=== PATIENT | female | born 1940 | race Caucasian/White ===

== ENCOUNTER → 2017-11-15 | Outpatient (CLI) | payer MEDICARE | LOC: CVU 15:50 | PROVIDERS: ATTEND Family Medicine | DX: I08.0 Rheumatic disorders of both mitral and aortic valves (principal); I10 Essential (primary) hypertension; E78.5 Hyperlipidemia, unspecified | CPT/HCPCS: 93306 ==

== ENCOUNTER 2018-01-24 09:52 | Observation (INO) | payer MEDICARE ==
[~2018-01-24] VITALS: Ht 165.1 cm; Wt 92.4 kg
[2018-01-24] MEDS ORDERED: SIMV20TA3 PO (11:21)
[2018-01-24] MEDS ORDERED: DORZ10DR7 EACHEYE (11:21)
[2018-01-24] MEDS ORDERED: HYDR-3245 PO (11:21)
[2018-01-24] MEDS ORDERED: INSU100V3 SC (11:21)
[2018-01-24] MEDS ORDERED: LISI40TA PO (11:21)
[2018-01-24] MEDS ORDERED: AMLO10TA4 PO (11:21)
[2018-01-24] MEDS ORDERED: LATA7.5D EACHEYE (11:21)
[2018-01-24] MEDS ORDERED: INSU100I13 SQ (11:21)
[2018-01-24] MEDS ORDERED: METF500T5 PO (11:21)
[2018-01-24 11:26] LABS: BASOPHILS # (AUTO) 0.13 x10^3/uL (0-0.1); BASOPHILS % (AUTO) 2 % (0-1); EOSINOPHILS # (AUTO) 0.49 x10^3/uL (0-0.4); EOSINOPHILS % (AUTO) 8 % (1-7); LYMPHOCYTES # (AUTO) 1.92 x10^3/uL (1-3.4); LYMPHOCYTES % (AUTO) 33 % (22-44); MD NO; MEAN CORPUSCULAR HEMOGLOBIN 32.6 pg (27.0-34.8); MEAN CORPUSCULAR HGB CONC 34.1 g/dL (32.4-35.8); MEAN CORPUSCULAR VOLUME 95.4 fL (80-100); MEAN PLATELET VOLUME 9.3 fL (7.4-10.4); MONOCYTES # (AUTO) 0.65 x10^3/uL (0.2-0.8); MONOCYTES % (AUTO) 11 % (2-9); NEUTROPHILS # (AUTO) 2.72 x10^3/uL (1.8-6.8); NEUTROPHILS % (AUTO) 46 % (42-75); PLATELET COUNT 237 x10^3/uL (130-400); RED CELL DISTRIBUTION WIDTH 13.7 % (9.6-15.2)
[2018-01-24 11:34] LABS: ANION GAP 7 mmol/L (5-15); CALCIUM 9.3 mg/dL (8.5-10.1); CHLORIDE 107 mmol/L (98-107); CREATININE 0.79 mg/dL (0.55-1.02)
[2018-01-24] MEDS ORDERED: MIDAZOLAM 1 MG/ML, 5ML ONE (12:20)
[2018-01-24] MEDS ORDERED: FENTANYL PF 100 MCG/2ML ONE (12:20)
[2018-01-24] MEDS ORDERED: DIPHENHYDRAMINE 50 MG/ML, 1ML ONE (12:21)
[2018-01-24] MEDS ORDERED: BIVALIRUDIN 250 MG ONE (13:13)
[2018-01-24] MEDS ORDERED: TICAGRELOR 90 MG TABLET ONE (13:13)
[2018-01-24] MEDS ORDERED: BIVALIRUDIN 250 MG in DEXTROSE 5% 50 ML IV SCH (13:35)
[2018-01-24] MEDS: SODIUM CHLORIDE 0.9% 1,000 ML IV SCH ×2 (13:35→21:41)
[2018-01-24] MEDS ORDERED: ASPIRIN 325 MG TABLET EC ONE (13:40)
[2018-01-24] MEDS ORDERED: HYDROcodone/APAP 10/325 MG TABLET PO PRN (14:00)
[2018-01-24 15:55] VITALS: BP 147/80
[2018-01-24 18:50] VITALS: BP 160/85
[2018-01-24] MEDS ORDERED: LATANOPROST OPHTH 0.005%, 2.5ML EACHEYE SCH (21:00)
[2018-01-24] MEDS ORDERED: TIMOLOL OPHTH 0.5%, 5ML EACHEYE SCH (21:00)
[2018-01-24] MEDS ORDERED: SIMVASTATIN 20 MG TABLET PO SCH (21:00)
[2018-01-24] MEDS ORDERED: INSULIN GLARGINE 100 UNITS/ML, PEN SQ-INSULIN SCH (21:00)
[2018-01-24] MEDS ORDERED: DORZOLAMIDE OPHTH 2%, 10ML EACHEYE SCH (21:00)
[2018-01-24] MEDS: TICAGRELOR 90 MG TABLET PO SCH (21:02)
[2018-01-25 01:00] VITALS: BP 144/80
[2018-01-25 04:58] LABS: ALBUMIN 3.4 g/dL (3.4-5.0); ANION GAP 7 mmol/L (5-15); CALCIUM 9.1 mg/dL (8.5-10.1); CHLORIDE 107 mmol/L (98-107); CREATININE 0.91 mg/dL (0.55-1.02)
[2018-01-25] MEDS: SODIUM CHLORIDE 0.9% 1,000 ML IV SCH (05:07)
[2018-01-25] MEDS ORDERED: ASPIRIN 81 MG TABLET EC PO SCH (06:00)
[2018-01-25 07:51] VITALS: BP 128/87
[2018-01-25] MEDS ORDERED: LISINOPRIL 20 MG TABLET PO SCH (09:00)
[2018-01-25] MEDS ORDERED: AMLODIPINE 5 MG TABLET PO SCH (09:00)
[2018-01-25] MEDS: TICAGRELOR 90 MG TABLET PO SCH (09:19)
[2018-01-25] MEDS ORDERED: TICA90TA PO (10:10)
[2018-01-25] MEDS ORDERED: ASPI-621 PO (10:10)
== END 2018-01-25 12:25 | disposition home or self-care (01) ==
LOC: CACL 09:52 → 5SO 15:25 → CACL 20:45 → DCLOUNGE 01-25 11:48
PROVIDERS: ADMIT Internal Medicine Cardiovascular Disease; ATTEND Internal Medicine Cardiovascular Disease
DX: I25.10 Atherosclerotic heart disease of native coronary artery without angina pectoris (principal); I35.0 Nonrheumatic aortic (valve) stenosis; I10 Essential (primary) hypertension; E11.9 Type 2 diabetes mellitus without complications; M17.11 Unilateral primary osteoarthritis, right knee; E78.2 Mixed hyperlipidemia
CPT/HCPCS: 36415; 80048; 82040; 82962; 85014; 85018; 85025; 93005; 93454; 93567; 96372; 99156; 99157; C1725; C1760; C1769; C1874; C1887; C1894; C9600; G0378; J0583; J1200; J1815; J2250; J3010; Q9967

== ENCOUNTER → 2018-03-04 | Outpatient (CLI) | payer MEDICARE ==
[~2018-03-04] MED LIST: AMLO10TA4 PO; ASPI-621 PO; DORZ10DR7 EACHEYE; HYDR-3245 PO; INSU100I13 SQ; INSU100V3 SC; LATA7.5D EACHEYE; LISI40TA PO; METF500T17 PO; SIMV20TA3 PO; TICA90TA PO
== END | disposition home or self-care (01) ==
LOC: CVU 08:59
PROVIDERS: ATTEND Internal Medicine Cardiovascular Disease
DX: I65.23 Occlusion and stenosis of bilateral carotid arteries (principal); J45.909 Unspecified asthma, uncomplicated; I35.0 Nonrheumatic aortic (valve) stenosis; E11.9 Type 2 diabetes mellitus without complications
CPT/HCPCS: 93880; 94060; 94726; 94729

== ENCOUNTER → 2018-03-07 | Outpatient (CLI) | payer MEDICARE ==
[~2018-03-07] MED LIST changes: +OMNIPAQUE 350 MG/ML, 100ML BOTTLE ONE
[2018-03-07 13:19] LABS: ANION GAP 9 mmol/L (5-15); CHLORIDE 106 mmol/L (98-107); CREATININE 0.98 mg/dL (0.55-1.02)
== END | disposition home or self-care (01) ==
LOC: RAD 12:51
PROVIDERS: ATTEND Internal Medicine Cardiovascular Disease
DX: I70.1 Atherosclerosis of renal artery (principal); I25.10 Atherosclerotic heart disease of native coronary artery without angina pectoris; N95.9 Unspecified menopausal and perimenopausal disorder; N28.1 Cyst of kidney, acquired; I11.0 Hypertensive heart disease with heart failure; I50.23 Acute on chronic systolic (congestive) heart failure; E11.9 Type 2 diabetes mellitus without complications; E78.2 Mixed hyperlipidemia; Z98.61 Coronary angioplasty status
CPT/HCPCS: 36415; 71275; 74174; 80048; Q9967

== ENCOUNTER 2018-03-19 07:55 | Inpatient (IN) | payer MEDICARE ==
[~2018-03-19] VITALS: Ht 165.1 cm; Wt 95.4 kg
[~2018-03-19 07:55] MED LIST changes: -OMNIPAQUE 350 MG/ML, 100ML BOTTLE ONE
[2018-03-19] MEDS ORDERED: SODIUM CHLORIDE 0.9% 1,000 ML IV ONE (08:08)
[2018-03-19] MEDS ORDERED: CHLORHEXIDINE 15 ML UDC MM PRN (08:30)
[2018-03-19] MEDS ORDERED: ONDANSETRON 2MG/ML, 2ML IVPush PRN (08:30)
[2018-03-19] MEDS ORDERED: MULT-257 PO (08:51)
[2018-03-19] MEDS ORDERED: IBUP-1223 PO (08:51)
[2018-03-19] MEDS ORDERED: UBID100C41 PO (08:51)
[2018-03-19] MEDS ORDERED: CLOP75TA52 PO (08:51)
[2018-03-19 08:59] VITALS: BP 144/70
[2018-03-19] MEDS ORDERED: FENTANYL PF 250 MCG/5ML ONE (09:16)
[2018-03-19] MEDS ORDERED: CEFAZOLIN 1,000 MG ONE (09:17)
[2018-03-19] MEDS ORDERED: PROTAMINE SULFATE 10 MG/ML, 5ML ONE (09:17)
[2018-03-19] MEDS ORDERED: ROCURONIUM 10MG/ML,5ML ONE (09:19)
[2018-03-19] MEDS ORDERED: HEPARIN 1,000 UNITS/ML, 30ML ONE (09:19)
[2018-03-19] MEDS ORDERED: PHENYLEPHRINE 10 MG/ML ONE (09:19)
[2018-03-19] MEDS ORDERED: PROPOFOL 10 MG/ML, 20ML ONE (09:19)
[2018-03-19] MEDS ORDERED: EPHEDRINE 50 MG/ML, 1ML ONE (10:01)
[2018-03-19 10:10] LABS: BASOPHILS # (AUTO) 0.12 x10^3/uL (0-0.1); BASOPHILS % (AUTO) 1 % (0-1); EOSINOPHILS # (AUTO) 0.36 x10^3/uL (0-0.4); EOSINOPHILS % (AUTO) 4 % (1-7); LYMPHOCYTES # (AUTO) 1.96 x10^3/uL (1-3.4); LYMPHOCYTES % (AUTO) 21 % (22-44); MD NO; MEAN CORPUSCULAR HEMOGLOBIN 33.1 pg (27.0-34.8); MEAN CORPUSCULAR HGB CONC 34.6 g/dL (32.4-35.8); MEAN CORPUSCULAR VOLUME 95.6 fL (80-100); MEAN PLATELET VOLUME 8.8 fL (7.4-10.4); MONOCYTES # (AUTO) 0.64 x10^3/uL (0.2-0.8); MONOCYTES % (AUTO) 7 % (2-9); NEUTROPHILS # (AUTO) 6.32 x10^3/uL (1.8-6.8); NEUTROPHILS % (AUTO) 67 % (42-75); PLATELET COUNT 250 x10^3/uL (130-400); RED BLOOD COUNT 4.02 x10^6/uL (3.82-5.3); RED CELL DISTRIBUTION WIDTH 13.7 % (9.6-15.2)
[2018-03-19 10:18] LABS: ALANINE AMINOTRANSFERASE 28 U/L (12-78); ALBUMIN 3.4 g/dL (3.4-5.0); ANION GAP 10 mmol/L (5-15); CALCIUM 8.4 mg/dL (8.5-10.1); CHLORIDE 111 mmol/L (98-107); CREATININE 0.77 mg/dL (0.55-1.02)
[2018-03-19 10:20] LABS: ALKALINE PHOSPHATASE 56 U/L (45-117); BILIRUBIN,TOTAL 0.4 mg/dL (0.2-1.0); TOTAL PROTEIN 6.5 g/dL (6.4-8.2)
[2018-03-19] MEDS ORDERED: LABETALOL 20 MG/4 ML IVPush PRN (11:30)
[2018-03-19] MEDS ORDERED: LABETALOL 5MG/ML, 20ML ONE (11:37)
[2018-03-19] MEDS: hydrALAzine 20 MG/ML, 1ML IVPush PRN ×2 (12:31→13:18)
[2018-03-19] MEDS: ASPIRIN 81 MG TABLET EC PO SCH (13:18)
[2018-03-19] MEDS ORDERED: ACETAMINOPHEN 325 MG TABLET PO PRN (20:30)
[2018-03-19] MEDS ORDERED: CLOPIDOGREL 75 MG TABLET PO ONE (21:00)
[2018-03-19 23:00] VITALS: BP 133/71
[2018-03-20] MEDS ORDERED: LABETALOL 5MG/ML, 20ML IVPush PRN (00:43)
[2018-03-20 01:11] VITALS: BP 139/59
[2018-03-20 01:20] VITALS: BP 148/90
[2018-03-20 01:30] VITALS: BP 124/67
[2018-03-20 05:42] LABS: BASOPHILS # (AUTO) 0.04 x10^3/uL (0-0.1); BASOPHILS % (AUTO) 0 % (0-1); EOSINOPHILS # (AUTO) 0.06 x10^3/uL (0-0.4); EOSINOPHILS % (AUTO) 1 % (1-7); LYMPHOCYTES # (AUTO) 1.52 x10^3/uL (1-3.4); LYMPHOCYTES % (AUTO) 13 % (22-44); MD NO; MEAN CORPUSCULAR HGB CONC 33.7 g/dL (32.4-35.8); MEAN CORPUSCULAR VOLUME 97.9 fL (80-100); MEAN PLATELET VOLUME 9.1 fL (7.4-10.4); MONOCYTES # (AUTO) 1.28 x10^3/uL (0.2-0.8); MONOCYTES % (AUTO) 11 % (2-9); NEUTROPHILS # (AUTO) 8.64 x10^3/uL (1.8-6.8); NEUTROPHILS % (AUTO) 75 % (42-75); PLATELET COUNT 204 x10^3/uL (130-400); RED BLOOD COUNT 3.87 x10^6/uL (3.82-5.3); RED CELL DISTRIBUTION WIDTH 14.3 % (9.6-15.2)
[2018-03-20 05:53] LABS: CHLORIDE 107 mmol/L (98-107)
[2018-03-20 05:58] LABS: ANION GAP 9 mmol/L (5-15); CALCIUM 8.7 mg/dL (8.5-10.1); CREATININE 0.96 mg/dL (0.55-1.02)
[2018-03-20 06:49] VITALS: BP 124/63
[2018-03-20] MEDS ORDERED: CLOPIDOGREL 75 MG TABLET PO SCH (09:00)
[2018-03-20] MEDS ORDERED: DEXAMETHASONE 4 MG/ML, 1ML ONE (09:24)
[2018-03-20] MEDS ORDERED: SUCCINYLCHOLINE 20 MG/ML, 10ML ONE (09:24)
[2018-03-20] MEDS ORDERED: ONDANSETRON 2MG/ML, 2ML ONE (09:24)
[2018-03-20] MEDS: ASPIRIN 81 MG TABLET EC PO SCH (09:40)
[2018-03-20 12:20] VITALS: BP 139/79
== END 2018-03-20 16:17 | disposition home or self-care (01) | DRG 266 ==
LOC: ORIP 07:55 → CCU 09:21 → 5SO 22:59
PROVIDERS: ADMIT Internal Medicine Cardiovascular Disease; ATTEND Internal Medicine Cardiovascular Disease
PROC: 05HY33Z Insertion of Infusion Device into Upper Vein, Percutaneous Approach (ICD-10-PCS; 2018-03-19)
PROC: B246ZZ4 Ultrasonography of Right and Left Heart, Transesophageal (ICD-10-PCS; 2018-03-19)
PROC: 02RF38Z Replacement of Aortic Valve with Zooplastic Tissue, Percutaneous Approach (ICD-10-PCS; principal; 2018-03-19 10:00)
DX: I35.0 Nonrheumatic aortic (valve) stenosis (principal); Z00.6 Encounter for examination for normal comparison and control in clinical research program; I50.23 Acute on chronic systolic (congestive) heart failure; E11.9 Type 2 diabetes mellitus without complications; Z96.643 Presence of artificial hip joint, bilateral; Z96.651 Presence of right artificial knee joint; I11.0 Hypertensive heart disease with heart failure; E78.5 Hyperlipidemia, unspecified; I25.10 Atherosclerotic heart disease of native coronary artery without angina pectoris; M19.90 Unspecified osteoarthritis, unspecified site; Z79.84 Long term (current) use of oral hypoglycemic drugs; Z95.5 Presence of coronary angioplasty implant and graft
CPT/HCPCS: 33361; 36415; 80048; 80053; 82962; 85025; 85347; 86850; 86900; 86923; 87081; 93005; 93308; 93312; 93321; 93325; 93355; C1760; C1769; C1894; G0378; J0690; J1100; J1644; J2405; J2704; J2720; J3010; J0330; J0360; J2370; J3490; Q9967

== ENCOUNTER → 2018-04-23 | Outpatient (CLI) | payer MEDICARE ==
[~2018-04-23] MED LIST changes: +CLOP75TA52 PO; +IBUP-1223 PO; +MULT-257 PO; +UBID100C41 PO
== END | disposition home or self-care (01) ==
LOC: CVU 06:47
PROVIDERS: ATTEND Internal Medicine Cardiovascular Disease
DX: I08.1 Rheumatic disorders of both mitral and tricuspid valves (principal); I10 Essential (primary) hypertension; E78.5 Hyperlipidemia, unspecified; E11.9 Type 2 diabetes mellitus without complications
CPT/HCPCS: 0399T; 93306

== ENCOUNTER → 2018-05-29 | Outpatient (CLI) | payer MEDICARE ==
[~2018-05-29] MED LIST changes: -ASPI-621 PO; +ASPI81TA45 PO
== END | disposition home or self-care (01) ==
LOC: CVU 09:09
PROVIDERS: ATTEND Internal Medicine Cardiovascular Disease
DX: I35.0 Nonrheumatic aortic (valve) stenosis (principal); I34.8 Other nonrheumatic mitral valve disorders; I11.9 Hypertensive heart disease without heart failure; E78.5 Hyperlipidemia, unspecified; E11.9 Type 2 diabetes mellitus without complications
CPT/HCPCS: 93306

== ENCOUNTER 2018-10-28 10:35 | Day surgery (SDC) | payer MEDICARE ==
[2018-10-25 13:56] LABS: BASOPHILS % (AUTO) 1 % (0-1); EOSINOPHILS # (AUTO) 0.33 x10^3/uL (0-0.4); EOSINOPHILS % (AUTO) 3 % (1-7); LYMPHOCYTES # (AUTO) 2.48 x10^3/uL (1-3.4); LYMPHOCYTES % (AUTO) 22 % (22-44); MD NO; MEAN CORPUSCULAR HEMOGLOBIN 30.4 pg (27.0-34.8); MEAN CORPUSCULAR HGB CONC 31.9 g/dL (32.4-35.8); MEAN CORPUSCULAR VOLUME 95.6 fL (80-100); MEAN PLATELET VOLUME 8.4 fL (7.4-10.4); MONOCYTES # (AUTO) 1.18 x10^3/uL (0.2-0.8); MONOCYTES % (AUTO) 10 % (2-9); NEUTROPHILS # (AUTO) 7.36 x10^3/uL (1.8-6.8); NEUTROPHILS % (AUTO) 64 % (42-75); PLATELET COUNT 301 x10^3/uL (130-400); RED BLOOD COUNT 4.31 x10^6/uL (3.82-5.3); RED CELL DISTRIBUTION WIDTH 12.7 % (9.6-15.2)
[2018-10-25 14:08] LABS: ALANINE AMINOTRANSFERASE 19 U/L (12-78); ALBUMIN 3.5 g/dL (3.4-5.0); ANION GAP 8 mmol/L (5-15); CALCIUM 9.7 mg/dL (8.5-10.1); CHLORIDE 96 mmol/L (98-107); CREATININE 1.08 mg/dL (0.55-1.02); INTERNATIONAL NORMALIZED RATIO 1.01 (0.93-1.1); PROTHROMBIN TIME 10.6 Seconds (9.6-11.5)
[2018-10-25 14:10] LABS: ALKALINE PHOSPHATASE 79 U/L (45-117); BILIRUBIN,TOTAL 0.3 mg/dL (0.2-1.0); TOTAL PROTEIN 7.2 g/dL (6.4-8.2)
[~2018-10-28] VITALS: Ht 165.1 cm; Wt 90.6 kg
[~2018-10-28 10:35] MED LIST changes: +ASPI-496 PO; +HYDROCHLOROTH12.5 MG PO; +LORA-953 PO; +PRAS10TA4 PO
[2018-10-28] MEDS ORDERED: LACTATED RINGERS 1,000 ML IV SCH (11:08)
[2018-10-28] MEDS ORDERED: ACETAMINOPHEN 500 MG TABLET PO ONE (11:30)
[2018-10-28] MEDS ORDERED: ONDANSETRON ODT 8 MG PO ONE (11:30)
[2018-10-28 11:55] VITALS: BP 131/79
[2018-10-28] MEDS ORDERED: INSU100C SQ-INSULIN (12:06)
[2018-10-28] MEDS ORDERED: HYDROcodone/APAP 10/325 MG TABLET PO ONE (14:00)
[2018-10-28] MEDS ORDERED: ONDANSETRON ODT 8 MG ONE (16:04)
[2018-10-28] MEDS ORDERED: ACETAMINOPHEN 500 MG TABLET ONE (16:05)
[2018-10-28] MEDS ORDERED: MIDAZOLAM 1 MG/ML, 2ML ONE (16:51)
[2018-10-28] MEDS ORDERED: FENTANYL PF 100 MCG/2ML ONE (16:51)
[2018-10-28] MEDS ORDERED: PROPOFOL 10 MG/ML, 20ML ONE (16:52)
[2018-10-28] MEDS ORDERED: SUCCINYLCHOLINE 20 MG/ML, 10ML ONE (17:25)
[2018-10-28] MEDS ORDERED: PHENYLEPHRINE 10 MG/ML ONE (17:25)
[2018-10-28] MEDS ORDERED: OXYcodone 5 MG/5 ML ORAL.SOL UDC PO PRN (18:30)
[2018-10-28] MEDS ORDERED: MIDAZOLAM 1 MG/ML, 2ML IV PRN (18:30)
[2018-10-28] MEDS ORDERED: FENTANYL PF 100 MCG/2ML IV PRN (18:30)
[2018-10-28] MEDS ORDERED: HYDROmorphone 2 MG/ML, 1ML IVPush PRN (18:30)
[2018-10-28] MEDS ORDERED: OXYcodone 5 MG/5 ML ORAL.SOL UDC ONE (18:31)
== END 2018-10-28 21:50 | disposition home or self-care (01) ==
LOC: OUT 10:35 → 4NOR 19:31 → OUT 21:50
PROVIDERS: ATTEND Specialist
DX: C53.0 Malignant neoplasm of endocervix (principal); N95.0 Postmenopausal bleeding; N83.209 Unspecified ovarian cyst, unspecified side; E78.00 Pure hypercholesterolemia, unspecified; I10 Essential (primary) hypertension; E11.9 Type 2 diabetes mellitus without complications; Z79.899 Other long term (current) drug therapy; Z96.642 Presence of left artificial hip joint; Z79.84 Long term (current) use of oral hypoglycemic drugs
CPT/HCPCS: 36415; 58120; 80053; 82962; 85025; 85610; 85730; 88305; 88341; 88342; 88360; 93005; J0330; J2250; J2370; J2704; J3010; J7120; G0378

== ENCOUNTER 2018-11-13 09:52 | Inpatient (IN) | payer MEDICARE ==
[~2018-11-13] VITALS: Ht 165.1 cm; Wt 89.0 kg
[~2018-11-13 09:52] MED LIST changes: +INSU100C SQ-INSULIN
--- NOTE | 2018-11-13 10:01 | NUR ---
BIB [facility] FROM HOME WITH C/O INCREASED VAGINAL BLEEDING SINCE 10/28 WHEN SHE HAD DNC PREFORMED. PT WITH CHRONIC HX OF VAGINAL BLEEDING BUT STATES WORSE SINCE PROCEDURE. PT STATES GENERALIZED WEAKNESS. UNABLE TO DO MOST OF WHAT SHE NORMALLY DOES. PT DENIES PAIN AT THIS TIME. PT PALE, WARM, AND DRY. DENIES EVERY REQURING A BLOOD TRANSFUSION. IV STARTED BY [place] AND GIVEN 250ML OF NS AFTER BEING HYPOTENSIVE. VSS AT THIS TIME. WILL CONTINUE TO MONITOR.
[2018-11-13 10:35] LABS: INTERNATIONAL NORMALIZED RATIO 1.08 (0.93-1.1); PROTHROMBIN TIME 11.3 Seconds (9.6-11.5)
[2018-11-13 10:37] LABS: ALANINE AMINOTRANSFERASE 13 U/L (12-78); ANION GAP 12 mmol/L (5-15); CALCIUM 8.8 mg/dL (8.5-10.1); CHLORIDE 89 mmol/L (98-107); CREATININE 1.85 mg/dL (0.55-1.02)
[2018-11-13 10:39] LABS: ALKALINE PHOSPHATASE 65 U/L (45-117); BILIRUBIN,TOTAL 0.4 mg/dL (0.2-1.0); TOTAL PROTEIN 5.9 g/dL (6.4-8.2)
[2018-11-13 10:56] LABS: MEAN CORPUSCULAR HEMOGLOBIN 31.2 pg (27.0-34.8); MEAN CORPUSCULAR HGB CONC 32.6 g/dL (32.4-35.8); MEAN CORPUSCULAR VOLUME 95.9 fL (80-100); MEAN PLATELET VOLUME 8.5 fL (7.4-10.4); PLATELET COUNT 331 x10^3/uL (130-400); RED BLOOD COUNT 2.26 x10^6/uL (3.82-5.3); RED CELL DISTRIBUTION WIDTH 12.8 % (9.6-15.2)
[2018-11-13 10:58] LABS: BASOPHILS # (AUTO) 0.03 x10^3/uL (0-0.1); BASOPHILS % (AUTO) 0 % (0-1); EOSINOPHILS # (AUTO) 0.01 x10^3/uL (0-0.4); EOSINOPHILS % (AUTO) 0 % (1-7); LYMPHOCYTES # (AUTO) 1.49 x10^3/uL (1-3.4); LYMPHOCYTES % (AUTO) 9 % (22-44); MD SCAN; MONOCYTES # (AUTO) 1.15 x10^3/uL (0.2-0.8); MONOCYTES % (AUTO) 7 % (2-9); NEUTROPHILS # (AUTO) 13.97 x10^3/uL (1.8-6.8); NEUTROPHILS % (AUTO) 84 % (42-75)
--- NOTE | 2018-11-13 11:15 | NUR ---
ERMD AT BEDSIDE TO UPDATE POC. PT TO BE ADMITTED. TRANSFUSION TO OCCUR.
--- NOTE | 2018-11-13 11:54 | NUR ---
CONSENT SIGNED. REPORT TO ABHIJIT. BLOOD TO BE STARTED BEFORE TRANSPORT.
[2018-11-13 12:23] VITALS: BP 119/62
--- NOTE | 2018-11-13 12:25 | NUR ---
BLOOD RECEIVED FROM BLOOD BLANK. 2 PERSON VERIFCATION COMPLETED. BLOOD TRANSFUSION STARTED.
[2018-11-13] MEDS ORDERED: DOCUSATE 100 MG CAPSULE PO PRN (12:30)
[2018-11-13] MEDS ORDERED: ACETAMINOPHEN 325 MG TABLET PO PRN (12:30)
[2018-11-13] MEDS ORDERED: ENALAPRILAT 1.25 MG/ML, 2ML IVPush PRN (12:30)
[2018-11-13] MEDS ORDERED: POLYETHYLENE GLYCOL 17 GM PACKET PO PRN (12:30)
[2018-11-13 12:38] VITALS: BP 105/69
[2018-11-13 14:14] VITALS: BP 105/69
[2018-11-13] MEDS ORDERED: DEXTROSE 50%, 50ML SYRINGE IVPush PRN (15:30)
[2018-11-13] MEDS ORDERED: GLUCAGON 1 MG IM PRN (15:30)
[2018-11-13] MEDS ORDERED: DEXTROSE 4 GM TAB.CHEW PO PRN (15:30)
[2018-11-13] MEDS: INSULIN LISPRO 100 UNITS/ML, PEN SQ-INSULIN SCH ×2 (16:00→19:52)
[2018-11-13 16:07] VITALS: BP 105/69
[2018-11-13] MEDS: SODIUM CHLORIDE 0.9% 1,000 ML IV SCH ×2 (16:18→23:45)
[2018-11-13] MEDS: HYDROcodone/APAP 10/325 MG TABLET PO PRN (16:53)
[2018-11-13 19:27] VITALS: BP 108/69
[2018-11-13] MEDS ORDERED: IBUPROFEN 800 MG TABLET PO SCH (21:00)
[2018-11-13] MEDS: Dorzolamide Hcl/Timolol Maleat (Dorzolamide-Timolol Eye Drops EACHEYE SCH (21:27)
[2018-11-13] MEDS: SIMVASTATIN 20 MG TABLET PO SCH (21:44)
[2018-11-13] MEDS: INSULIN GLARGINE 100 UNITS/ML, PEN SQ-INSULIN SCH (21:45)
[2018-11-13] MEDS: LATANOPROST OPHTH 0.005%, 2.5ML EACHEYE SCH (21:46)
[2018-11-13] MEDS: SODIUM CHLORIDE FLUSH 10ML SYR IVF SCH (21:48)
[2018-11-14] VITALS (9 sets, daily range): BP systolic 105–118; BP diastolic 64–69
[2018-11-14] MEDS: HYDROcodone/APAP 10/325 MG TABLET PO PRN ×3 (03:00→20:23)
[2018-11-14 07:02] LABS: MEAN CORPUSCULAR HEMOGLOBIN 31.3 pg (27.0-34.8); MEAN CORPUSCULAR HGB CONC 32.8 g/dL (32.4-35.8); MEAN CORPUSCULAR VOLUME 95.6 fL (80-100); PLATELET COUNT 298 x10^3/uL (130-400); RED BLOOD COUNT 2.32 x10^6/uL (3.82-5.3); RED CELL DISTRIBUTION WIDTH 13.5 % (9.6-15.2)
[2018-11-14 07:15] LABS: ANION GAP 9 mmol/L (5-15); CALCIUM 8.1 mg/dL (8.5-10.1); CHLORIDE 93 mmol/L (98-107)
[2018-11-14 07:18] LABS: CREATININE 1.42 mg/dL (0.55-1.02)
[2018-11-14 07:31] LABS: BASOPHILS # (AUTO) 0.07 x10^3/uL (0-0.1); BASOPHILS % (AUTO) 0 % (0-1); EOSINOPHILS # (AUTO) 0.09 x10^3/uL (0-0.4); EOSINOPHILS % (AUTO) 1 % (1-7); LYMPHOCYTES # (AUTO) 3.63 x10^3/uL (1-3.4); LYMPHOCYTES % (AUTO) 21 % (22-44); MD SCAN; MONOCYTES # (AUTO) 1.64 x10^3/uL (0.2-0.8); MONOCYTES % (AUTO) 10 % (2-9); NEUTROPHILS # (AUTO) 11.62 x10^3/uL (1.8-6.8); NEUTROPHILS % (AUTO) 68 % (42-75)
[2018-11-14] MEDS: SODIUM CHLORIDE FLUSH 10ML SYR IVF SCH ×2 (08:41→22:24)
[2018-11-14] MEDS: Dorzolamide Hcl/Timolol Maleat (Dorzolamide-Timolol Eye Drops EACHEYE SCH ×2 (08:41→22:24)
[2018-11-14] MEDS: LISINOPRIL 40 MG TABLET PO SCH (08:42)
[2018-11-14] MEDS: SODIUM CHLORIDE 0.9% 1,000 ML IV SCH (08:42)
[2018-11-14] MEDS: MULTIVITAMIN 1 TABLET PO SCH (08:42)
[2018-11-14] MEDS ORDERED: AMLODIPINE 10 MG TAB PO SCH ×2 (09:00)
[2018-11-14] MEDS ORDERED: HYDROCHLOROTHIAZIDE 12.5 MG CAPSULE PO SCH ×2 (09:00)
[2018-11-14] MEDS ORDERED: LISINOPRIL 40 MG TABLET PO SCH (09:00)
[2018-11-14] MEDS ORDERED: TEMPLATE NON-FORMULARY MED. (Ubidecarenone** (Co Q-10**) 100 MG) PO SCH (09:00)
[2018-11-14] MEDS: INSULIN LISPRO 100 UNITS/ML, PEN SQ-INSULIN SCH ×4 (10:00→22:29)
[2018-11-14 13:47] LABS: MEAN CORPUSCULAR HEMOGLOBIN 31.7 pg (27.0-34.8); MEAN CORPUSCULAR VOLUME 93.2 fL (80-100); MEAN PLATELET VOLUME 8.1 fL (7.4-10.4); PLATELET COUNT 283 x10^3/uL (130-400); RED BLOOD COUNT 2.19 x10^6/uL (3.82-5.3); RED CELL DISTRIBUTION WIDTH 13.3 % (9.6-15.2)
[2018-11-14 13:56] LABS: INTERNATIONAL NORMALIZED RATIO 1.03 (0.93-1.1); PROTHROMBIN TIME 10.8 Seconds (9.6-11.5)
[2018-11-14 14:11] LABS: BASOPHILS # (AUTO) 0.09 x10^3/uL (0-0.1); BASOPHILS % (AUTO) 1 % (0-1); EOSINOPHILS # (AUTO) 0.08 x10^3/uL (0-0.4); EOSINOPHILS % (AUTO) 1 % (1-7); LYMPHOCYTES # (AUTO) 2.15 x10^3/uL (1-3.4); LYMPHOCYTES % (AUTO) 15 % (22-44); MD SCAN; MONOCYTES # (AUTO) 1.37 x10^3/uL (0.2-0.8); MONOCYTES % (AUTO) 10 % (2-9); NEUTROPHILS # (AUTO) 10.63 x10^3/uL (1.8-6.8); NEUTROPHILS % (AUTO) 74 % (42-75)
[2018-11-14 18:24] LABS: MICROSCOPIC AUTO
[2018-11-14] MEDS ORDERED: ACETAMINOPHEN 325 MG TABLET PO PRN (19:30)
[2018-11-14] MEDS ORDERED: DIPHENHYDRAMINE 25 MG CAPSULE PO PRN (19:30)
[2018-11-14] MEDS: LATANOPROST OPHTH 0.005%, 2.5ML EACHEYE SCH (22:23)
[2018-11-14] MEDS: SIMVASTATIN 20 MG TABLET PO SCH (22:24)
[2018-11-14] MEDS: INSULIN GLARGINE 100 UNITS/ML, PEN SQ-INSULIN SCH (22:29)
[2018-11-15 01:12] VITALS: BP 106/63
[2018-11-15 01:28] VITALS: BP 107/65
[2018-11-15 02:40] VITALS: BP 114/67
[2018-11-15] MEDS: SODIUM CHLORIDE 0.9% 1,000 ML IV SCH (03:00)
[2018-11-15] MEDS: HYDROcodone/APAP 10/325 MG TABLET PO PRN ×3 (04:17→19:55)
[2018-11-15] MEDS ORDERED: ACETAMINOPHEN 325 MG TABLET PO PRN (04:30)
[2018-11-15] MEDS ORDERED: DIPHENHYDRAMINE 25 MG CAPSULE PO PRN (04:30)
[2018-11-15 07:10] VITALS: BP 112/67
[2018-11-15 07:56] LABS: MEAN CORPUSCULAR VOLUME 93.9 fL (80-100); MEAN PLATELET VOLUME 8.1 fL (7.4-10.4); PLATELET COUNT 272 x10^3/uL (130-400); RED BLOOD COUNT 3.07 x10^6/uL (3.82-5.3); RED CELL DISTRIBUTION WIDTH 13.9 % (9.6-15.2)
[2018-11-15 08:08] LABS: ANION GAP 10 mmol/L (5-15); CHLORIDE 98 mmol/L (98-107)
[2018-11-15] MEDS: LISINOPRIL 40 MG TABLET PO SCH (08:09)
[2018-11-15] MEDS: MULTIVITAMIN 1 TABLET PO SCH (08:09)
[2018-11-15] MEDS: AMLODIPINE 10 MG TAB PO SCH (08:09)
[2018-11-15] MEDS: SODIUM CHLORIDE FLUSH 10ML SYR IVF SCH ×2 (08:10→20:40)
[2018-11-15] MEDS: Dorzolamide Hcl/Timolol Maleat (Dorzolamide-Timolol Eye Drops EACHEYE SCH ×2 (08:11→20:39)
[2018-11-15] MEDS: INSULIN LISPRO 100 UNITS/ML, PEN SQ-INSULIN SCH ×4 (08:17→20:52)
[2018-11-15 08:38] LABS: MD MORPH REVIEW ONLY
[2018-11-15 08:39] LABS: ANISOCYTOSIS 1+; BASOPHILS # (AUTO) 0.07 x10^3/uL (0-0.1); BASOPHILS % (AUTO) 1 % (0-1); EOSINOPHILS # (AUTO) 0.21 x10^3/uL (0-0.4); EOSINOPHILS % (AUTO) 2 % (1-7); LYMPHOCYTES % (AUTO) 17 % (22-44); MONOCYTES # (AUTO) 1.32 x10^3/uL (0.2-0.8); MONOCYTES % (AUTO) 10 % (2-9); NEUTROPHILS # (AUTO) 8.97 x10^3/uL (1.8-6.8); NEUTROPHILS % (AUTO) 71 % (42-75)
[2018-11-15 08:40] LABS: <PLATELET ESTIMATE> ADEQUATE; <PLT MORPHOLOGY> NORMAL PLT MORPH
[2018-11-15] MEDS: CIPROFLOXACIN/PMX 400MG/200ML 200 ML IV SCH ×2 (10:17→22:18)
[2018-11-15] MEDS ORDERED: SODIUM CHLORIDE 0.9% 1,000 ML IV SCH (12:19)
[2018-11-15 13:39] VITALS: BP 97/60
[2018-11-15] MEDS ORDERED: metFORMIN XR 500 MG TAB.ER.24H PO ONE (16:00)
[2018-11-15 19:53] VITALS: BP 103/57
[2018-11-15] MEDS: LATANOPROST OPHTH 0.005%, 2.5ML EACHEYE SCH (20:39)
[2018-11-15] MEDS: SIMVASTATIN 20 MG TABLET PO SCH (20:39)
[2018-11-15] MEDS: INSULIN GLARGINE 100 UNITS/ML, PEN SQ-INSULIN SCH (20:49)
[2018-11-16 01:20] VITALS: BP 125/73
[2018-11-16] MEDS: HYDROcodone/APAP 10/325 MG TABLET PO PRN ×5 (02:34→21:33)
[2018-11-16 05:32] LABS: BASOPHILS # (AUTO) 0.07 x10^3/uL (0-0.1); BASOPHILS % (AUTO) 1 % (0-1); EOSINOPHILS # (AUTO) 0.25 x10^3/uL (0-0.4); EOSINOPHILS % (AUTO) 2 % (1-7); LYMPHOCYTES # (AUTO) 2.16 x10^3/uL (1-3.4); LYMPHOCYTES % (AUTO) 20 % (22-44); MD NO; MEAN CORPUSCULAR HEMOGLOBIN 31.6 pg (27.0-34.8); MEAN CORPUSCULAR HGB CONC 33.3 g/dL (32.4-35.8); MEAN CORPUSCULAR VOLUME 95.1 fL (80-100); MEAN PLATELET VOLUME 7.9 fL (7.4-10.4); MONOCYTES # (AUTO) 1.18 x10^3/uL (0.2-0.8); MONOCYTES % (AUTO) 11 % (2-9); NEUTROPHILS # (AUTO) 6.98 x10^3/uL (1.8-6.8); NEUTROPHILS % (AUTO) 66 % (42-75); PLATELET COUNT 254 x10^3/uL (130-400); RED BLOOD COUNT 2.64 x10^6/uL (3.82-5.3); RED CELL DISTRIBUTION WIDTH 13.8 % (9.6-15.2)
[2018-11-16 05:36] LABS: CALCIUM 7.6 mg/dL (8.5-10.1); CHLORIDE 101 mmol/L (98-107)
[2018-11-16 05:39] LABS: CREATININE 0.82 mg/dL (0.55-1.02)
[2018-11-16 06:23] LABS: ANION GAP 6 mmol/L (5-15)
[2018-11-16 06:35] VITALS: BP 146/74
[2018-11-16] MEDS: metFORMIN XR 500 MG TAB.ER.24H PO SCH (08:05)
[2018-11-16] MEDS: INSULIN LISPRO 100 UNITS/ML, PEN SQ-INSULIN SCH ×4 (08:06→21:33)
[2018-11-16] MEDS: SODIUM CHLORIDE FLUSH 10ML SYR IVF SCH ×2 (10:54→21:00)
[2018-11-16] MEDS: MULTIVITAMIN 1 TABLET PO SCH (10:56)
[2018-11-16] MEDS: AMLODIPINE 10 MG TAB PO SCH (10:56)
[2018-11-16] MEDS: LISINOPRIL 40 MG TABLET PO SCH (10:56)
[2018-11-16] MEDS: CIPROFLOXACIN/PMX 400MG/200ML 200 ML IV SCH ×2 (10:57→22:02)
[2018-11-16] MEDS: Dorzolamide Hcl/Timolol Maleat (Dorzolamide-Timolol Eye Drops EACHEYE SCH ×2 (10:57→21:00)
[2018-11-16 13:01] VITALS: BP 131/77
[2018-11-16 19:48] VITALS: BP 116/73
[2018-11-16] MEDS ORDERED: PHENAZOPYRIDINE 200 MG TABLET ONE (21:13)
[2018-11-16] MEDS: LATANOPROST OPHTH 0.005%, 2.5ML EACHEYE SCH (21:32)
[2018-11-16] MEDS: INSULIN GLARGINE 100 UNITS/ML, PEN SQ-INSULIN SCH (21:33)
[2018-11-16] MEDS: PHENAZOPYRIDINE 100 MG TABLET PO PRN (21:34)
[2018-11-16] MEDS: SIMVASTATIN 20 MG TABLET PO SCH (21:35)
[2018-11-17 01:49] VITALS: BP 132/72
[2018-11-17 04:40] LABS: BASOPHILS # (AUTO) 0.07 x10^3/uL (0-0.1); BASOPHILS % (AUTO) 1 % (0-1); EOSINOPHILS # (AUTO) 0.31 x10^3/uL (0-0.4); EOSINOPHILS % (AUTO) 3 % (1-7); LYMPHOCYTES # (AUTO) 2.06 x10^3/uL (1-3.4); LYMPHOCYTES % (AUTO) 20 % (22-44); MD NO; MEAN CORPUSCULAR HEMOGLOBIN 31.1 pg (27.0-34.8); MEAN CORPUSCULAR HGB CONC 32.5 g/dL (32.4-35.8); MEAN CORPUSCULAR VOLUME 95.7 fL (80-100); MEAN PLATELET VOLUME 7.6 fL (7.4-10.4); MONOCYTES # (AUTO) 1.17 x10^3/uL (0.2-0.8); MONOCYTES % (AUTO) 12 % (2-9); NEUTROPHILS # (AUTO) 6.59 x10^3/uL (1.8-6.8); NEUTROPHILS % (AUTO) 65 % (42-75); PLATELET COUNT 280 x10^3/uL (130-400); RED BLOOD COUNT 2.99 x10^6/uL (3.82-5.3); RED CELL DISTRIBUTION WIDTH 13.9 % (9.6-15.2)
[2018-11-17 04:55] LABS: ALBUMIN 2.7 g/dL (3.4-5.0); CHLORIDE 101 mmol/L (98-107)
[2018-11-17 04:59] LABS: ALANINE AMINOTRANSFERASE 15 U/L (12-78); ALKALINE PHOSPHATASE 59 U/L (45-117); ANION GAP 5 mmol/L (5-15); BILIRUBIN,TOTAL 0.3 mg/dL (0.2-1.0); CREATININE 0.84 mg/dL (0.55-1.02); TOTAL PROTEIN 5.8 g/dL (6.4-8.2)
[2018-11-17] MEDS: PHENAZOPYRIDINE 100 MG TABLET PO PRN ×2 (05:49→20:48)
[2018-11-17] MEDS: HYDROcodone/APAP 10/325 MG TABLET PO PRN ×4 (05:50→20:48)
[2018-11-17 07:06] VITALS: BP 129/77
[2018-11-17] MEDS: LISINOPRIL 40 MG TABLET PO SCH (08:06)
[2018-11-17] MEDS: MULTIVITAMIN 1 TABLET PO SCH (08:06)
[2018-11-17] MEDS: AMLODIPINE 10 MG TAB PO SCH (08:06)
[2018-11-17] MEDS: metFORMIN XR 500 MG TAB.ER.24H PO SCH (08:06)
[2018-11-17] MEDS: Dorzolamide Hcl/Timolol Maleat (Dorzolamide-Timolol Eye Drops EACHEYE SCH ×2 (08:07→21:00)
[2018-11-17] MEDS: INSULIN LISPRO 100 UNITS/ML, PEN SQ-INSULIN SCH ×4 (08:07→20:56)
[2018-11-17] MEDS: SODIUM CHLORIDE FLUSH 10ML SYR IVF SCH ×2 (08:55→21:00)
[2018-11-17] MEDS: SODIUM CHLORIDE 0.9% 1,000 ML IV SCH (10:32)
[2018-11-17] MEDS: CIPROFLOXACIN/PMX 400MG/200ML 200 ML IV SCH ×2 (10:33→22:14)
[2018-11-17 13:26] VITALS: BP 136/73
[2018-11-17] MEDS ORDERED: GOLYTELY 4,000ML ORAL.SOL PO ONE (16:00)
[2018-11-17 19:52] VITALS: BP 132/80
[2018-11-17] MEDS ORDERED: PHENAZOPYRIDINE 200 MG TABLET ONE (20:42)
[2018-11-17] MEDS: SIMVASTATIN 20 MG TABLET PO SCH (20:48)
[2018-11-17] MEDS: INSULIN GLARGINE 100 UNITS/ML, PEN SQ-INSULIN SCH (20:57)
[2018-11-17] MEDS: LATANOPROST OPHTH 0.005%, 2.5ML EACHEYE SCH (21:05)
[2018-11-18 01:26] VITALS: BP 148/73
[2018-11-18] MEDS: SODIUM CHLORIDE 0.9% 1,000 ML IV SCH ×2 (02:51→16:20)
[2018-11-18] MEDS: HYDROcodone/APAP 10/325 MG TABLET PO PRN ×3 (02:56→14:26)
[2018-11-18 07:04] VITALS: BP 108/68
[2018-11-18] MEDS: Dorzolamide Hcl/Timolol Maleat (Dorzolamide-Timolol Eye Drops EACHEYE SCH ×2 (08:45→21:00)
[2018-11-18] MEDS: MULTIVITAMIN 1 TABLET PO SCH (08:46)
[2018-11-18] MEDS: AMLODIPINE 10 MG TAB PO SCH (08:46)
[2018-11-18] MEDS: SODIUM CHLORIDE FLUSH 10ML SYR IVF SCH ×2 (08:46→21:00)
[2018-11-18] MEDS: LISINOPRIL 40 MG TABLET PO SCH (08:46)
[2018-11-18 08:47] LABS: BASOPHILS # (AUTO) 0.06 x10^3/uL (0-0.1); BASOPHILS % (AUTO) 1 % (0-1); EOSINOPHILS # (AUTO) 0.28 x10^3/uL (0-0.4); EOSINOPHILS % (AUTO) 3 % (1-7); LYMPHOCYTES # (AUTO) 1.75 x10^3/uL (1-3.4); LYMPHOCYTES % (AUTO) 21 % (22-44); MD NO; MEAN CORPUSCULAR HEMOGLOBIN 30.8 pg (27.0-34.8); MEAN CORPUSCULAR HGB CONC 32.9 g/dL (32.4-35.8); MEAN CORPUSCULAR VOLUME 93.6 fL (80-100); MEAN PLATELET VOLUME 7.4 fL (7.4-10.4); MONOCYTES # (AUTO) 0.91 x10^3/uL (0.2-0.8); MONOCYTES % (AUTO) 11 % (2-9); NEUTROPHILS # (AUTO) 5.45 x10^3/uL (1.8-6.8); NEUTROPHILS % (AUTO) 65 % (42-75); PLATELET COUNT 274 x10^3/uL (130-400); RED BLOOD COUNT 2.87 x10^6/uL (3.82-5.3); RED CELL DISTRIBUTION WIDTH 14.1 % (9.6-15.2)
[2018-11-18] MEDS: INSULIN LISPRO 100 UNITS/ML, PEN SQ-INSULIN SCH ×4 (08:53→21:00)
[2018-11-18 09:00] LABS: ANION GAP 5 mmol/L (5-15); CALCIUM 8.2 mg/dL (8.5-10.1); CHLORIDE 105 mmol/L (98-107)
[2018-11-18 09:02] LABS: CREATININE 0.69 mg/dL (0.55-1.02)
[2018-11-18] MEDS: CIPROFLOXACIN/PMX 400MG/200ML 200 ML IV SCH (10:02)
[2018-11-18] MEDS ORDERED: ROCURONIUM 10MG/ML,5ML ONE (10:52)
[2018-11-18 14:19] VITALS: BP 133/69
[2018-11-18] MEDS ORDERED: BUPIVACAINE/PF 0.25% ONE (14:53)
[2018-11-18] MEDS ORDERED: FENTANYL PF 250 MCG/5ML ONE (19:49)
[2018-11-18] MEDS ORDERED: INDOCYANINE GREEN 25 MG VIAL ONE (20:32)
[2018-11-18] MEDS: INSULIN GLARGINE 100 UNITS/ML, PEN SQ-INSULIN SCH (21:00)
[2018-11-18] MEDS: LATANOPROST OPHTH 0.005%, 2.5ML EACHEYE SCH (21:00)
[2018-11-18] MEDS: SIMVASTATIN 20 MG TABLET PO SCH (21:00)
[2018-11-18] MEDS ORDERED: hydrALAzine 20 MG/ML, 1ML IV PRN (21:30)
[2018-11-18] MEDS ORDERED: ACETAMINOPHEN 325 MG TABLET PO PRN (21:30)
[2018-11-18] MEDS ORDERED: PROMETHAZINE 25 MG/ML, 1ML IV PRN (21:30)
[2018-11-18] MEDS ORDERED: HYDROmorphone 2 MG/ML, 1ML IVPush PRN (21:30)
[2018-11-18] MEDS ORDERED: MEPERIDINE/PF 25MG/0.5ML IVPush PRN (21:30)
[2018-11-18] MEDS ORDERED: METOPROLOL 1 MG/ML, 5ML IV PRN (21:30)
[2018-11-18] MEDS ORDERED: ALBUTEROL/IPRATROPIUM 2.5MG/0.5MG, 3 ML NPPB PRN (21:30)
[2018-11-18] MEDS ORDERED: ONDANSETRON 2MG/ML, 2ML IV PRN (21:30)
[2018-11-18] MEDS ORDERED: MIDAZOLAM 1 MG/ML, 2ML IV PRN (21:30)
[2018-11-18] MEDS ORDERED: OXYcodone 5 MG/5 ML ORAL.SOL UDC PO PRN (21:30)
[2018-11-18] MEDS ORDERED: KETOROLAC 30 MG/1 ML IV PRN (21:30)
[2018-11-18] MEDS ORDERED: METOPROLOL 1 MG/ML, 5ML ONE (22:00)
[2018-11-18] MEDS ORDERED: hydrALAzine 20 MG/ML, 1ML ONE (22:01)
[2018-11-18] MEDS ORDERED: PROPOFOL 10 MG/ML, 20ML ONE (22:01)
[2018-11-18] MEDS ORDERED: CEFAZOLIN 1,000 MG ONE (22:01)
[2018-11-18] MEDS ORDERED: NEOSTIGMINE 1 MG/ML, 10ML ONE (22:01)
[2018-11-18] MEDS ORDERED: DEXAMETHASONE 4 MG/ML, 1ML ONE (22:01)
[2018-11-18] MEDS ORDERED: ONDANSETRON 2MG/ML, 2ML ONE ×2 (22:01→22:59)
[2018-11-18] MEDS ORDERED: FENTANYL PF 100 MCG/2ML ONE (22:44)
[2018-11-18] MEDS ORDERED: HYDROmorphone 2 MG/ML, 1ML ONE (22:45)
[2018-11-18] MEDS: FENTANYL PF 100 MCG/2ML IV PRN ×2 (22:45→23:09)
[2018-11-18] MEDS ORDERED: OXYcodone 5 MG/5 ML ORAL.SOL UDC ONE (22:45)
[2018-11-19] MEDS: SODIUM CHLORIDE 0.9% 1,000 ML IV SCH ×3 (00:08→20:51)
[2018-11-19 02:08] VITALS: BP 146/78
[2018-11-19 05:18] LABS: BASOPHILS % (AUTO) 0 % (0-1); EOSINOPHILS % (AUTO) 0 % (1-7); LYMPHOCYTES # (AUTO) 0.44 x10^3/uL (1-3.4); LYMPHOCYTES % (AUTO) 3 % (22-44); MD NO; MEAN CORPUSCULAR HEMOGLOBIN 31.5 pg (27.0-34.8); MEAN CORPUSCULAR VOLUME 95.3 fL (80-100); MEAN PLATELET VOLUME 7.9 fL (7.4-10.4); MONOCYTES % (AUTO) 3 % (2-9); NEUTROPHILS # (AUTO) 12.25 x10^3/uL (1.8-6.8); NEUTROPHILS % (AUTO) 94 % (42-75); PLATELET COUNT 282 x10^3/uL (130-400); RED BLOOD COUNT 3.02 x10^6/uL (3.82-5.3); RED CELL DISTRIBUTION WIDTH 13.9 % (9.6-15.2)
[2018-11-19 05:27] LABS: ANION GAP 9 mmol/L (5-15); CALCIUM 8.3 mg/dL (8.5-10.1); CHLORIDE 103 mmol/L (98-107)
[2018-11-19 05:28] LABS: CREATININE 0.71 mg/dL (0.55-1.02)
[2018-11-19] MEDS: INSULIN LISPRO 100 UNITS/ML, PEN SQ-INSULIN SCH ×4 (07:54→21:15)
[2018-11-19] MEDS: Dorzolamide Hcl/Timolol Maleat (Dorzolamide-Timolol Eye Drops EACHEYE SCH ×2 (09:00→20:52)
[2018-11-19 11:01] VITALS: BP 143/68
[2018-11-19] MEDS: MULTIVITAMIN 1 TABLET PO SCH (11:42)
[2018-11-19] MEDS: AMLODIPINE 10 MG TAB PO SCH (11:43)
[2018-11-19] MEDS: SODIUM CHLORIDE FLUSH 10ML SYR IVF SCH ×2 (11:43→21:00)
[2018-11-19] MEDS: HYDROcodone/APAP 10/325 MG TABLET PO PRN ×3 (11:43→20:51)
[2018-11-19] MEDS: LISINOPRIL 40 MG TABLET PO SCH (11:43)
[2018-11-19 12:50] VITALS: BP 119/57
[2018-11-19 20:33] VITALS: BP 124/69
[2018-11-19] MEDS: SIMVASTATIN 20 MG TABLET PO SCH (20:51)
[2018-11-19] MEDS: LATANOPROST OPHTH 0.005%, 2.5ML EACHEYE SCH (20:52)
[2018-11-19] MEDS: INSULIN GLARGINE 100 UNITS/ML, PEN SQ-INSULIN SCH (21:15)
[2018-11-20 02:22] VITALS: BP 127/70
[2018-11-20] MEDS: HYDROcodone/APAP 10/325 MG TABLET PO PRN ×5 (02:22→20:28)
[2018-11-20 04:40] LABS: BASOPHILS # (AUTO) 0.04 x10^3/uL (0-0.1); BASOPHILS % (AUTO) 0 % (0-1); EOSINOPHILS # (AUTO) 0.27 x10^3/uL (0-0.4); EOSINOPHILS % (AUTO) 3 % (1-7); LYMPHOCYTES # (AUTO) 1.67 x10^3/uL (1-3.4); LYMPHOCYTES % (AUTO) 17 % (22-44); MD NO; MEAN CORPUSCULAR HEMOGLOBIN 31.3 pg (27.0-34.8); MEAN CORPUSCULAR HGB CONC 32.9 g/dL (32.4-35.8); MEAN PLATELET VOLUME 7.9 fL (7.4-10.4); MONOCYTES % (AUTO) 10 % (2-9); NEUTROPHILS # (AUTO) 6.86 x10^3/uL (1.8-6.8); NEUTROPHILS % (AUTO) 70 % (42-75); PLATELET COUNT 235 x10^3/uL (130-400); RED BLOOD COUNT 2.48 x10^6/uL (3.82-5.3); RED CELL DISTRIBUTION WIDTH 13.9 % (9.6-15.2)
[2018-11-20 04:48] LABS: ANION GAP 6 mmol/L (5-15); CALCIUM 7.5 mg/dL (8.5-10.1); CHLORIDE 103 mmol/L (98-107)
[2018-11-20 04:49] LABS: CREATININE 0.86 mg/dL (0.55-1.02)
[2018-11-20 08:06] VITALS: BP 123/72
[2018-11-20] MEDS: INSULIN LISPRO 100 UNITS/ML, PEN SQ-INSULIN SCH ×4 (08:43→20:29)
[2018-11-20] MEDS: AMLODIPINE 10 MG TAB PO SCH (08:44)
[2018-11-20] MEDS: LISINOPRIL 40 MG TABLET PO SCH (08:44)
[2018-11-20] MEDS: MULTIVITAMIN 1 TABLET PO SCH (08:44)
[2018-11-20] MEDS: metFORMIN XR 500 MG TAB.ER.24H PO SCH (08:44)
[2018-11-20] MEDS: Dorzolamide Hcl/Timolol Maleat (Dorzolamide-Timolol Eye Drops EACHEYE SCH ×2 (08:46→20:06)
[2018-11-20] MEDS: SODIUM CHLORIDE FLUSH 10ML SYR IVF SCH ×2 (08:46→20:07)
[2018-11-20 13:26] VITALS: BP 119/71
[2018-11-20 18:37] VITALS: BP 146/74
[2018-11-20] MEDS: LATANOPROST OPHTH 0.005%, 2.5ML EACHEYE SCH (20:05)
[2018-11-20] MEDS: PRASUGREL 10 MG TABLET PO SCH ×2 (20:05→20:44)
[2018-11-20] MEDS: SIMVASTATIN 20 MG TABLET PO SCH (20:05)
[2018-11-20] MEDS: INSULIN GLARGINE 100 UNITS/ML, PEN SQ-INSULIN SCH (20:28)
[2018-11-21] MEDS: HYDROcodone/APAP 10/325 MG TABLET PO PRN ×4 (00:37→19:43)
[2018-11-21 01:02] VITALS: BP 131/71
[2018-11-21 05:18] LABS: BASOPHILS # (AUTO) 0.06 x10^3/uL (0-0.1); BASOPHILS % (AUTO) 1 % (0-1); EOSINOPHILS # (AUTO) 0.48 x10^3/uL (0-0.4); EOSINOPHILS % (AUTO) 5 % (1-7); LYMPHOCYTES # (AUTO) 1.85 x10^3/uL (1-3.4); LYMPHOCYTES % (AUTO) 19 % (22-44); MD NO; MEAN CORPUSCULAR HEMOGLOBIN 30.4 pg (27.0-34.8); MEAN CORPUSCULAR HGB CONC 32.3 g/dL (32.4-35.8); MEAN CORPUSCULAR VOLUME 94.1 fL (80-100); MEAN PLATELET VOLUME 7.4 fL (7.4-10.4); MONOCYTES % (AUTO) 10 % (2-9); NEUTROPHILS # (AUTO) 6.27 x10^3/uL (1.8-6.8); NEUTROPHILS % (AUTO) 65 % (42-75); PLATELET COUNT 262 x10^3/uL (130-400); RED BLOOD COUNT 2.74 x10^6/uL (3.82-5.3)
[2018-11-21 05:28] LABS: ANION GAP 6 mmol/L (5-15); CALCIUM 8.5 mg/dL (8.5-10.1); CHLORIDE 105 mmol/L (98-107)
[2018-11-21 05:29] LABS: CREATININE 0.76 mg/dL (0.55-1.02)
[2018-11-21] MEDS: INSULIN LISPRO 100 UNITS/ML, PEN SQ-INSULIN SCH ×4 (07:00→19:54)
[2018-11-21 07:43] VITALS: BP 138/71
[2018-11-21] MEDS: ASPIRIN 81 MG TABLET EC PO SCH (09:47)
[2018-11-21] MEDS: metFORMIN XR 500 MG TAB.ER.24H PO SCH (09:47)
[2018-11-21] MEDS: MULTIVITAMIN 1 TABLET PO SCH (09:47)
[2018-11-21] MEDS: SODIUM CHLORIDE FLUSH 10ML SYR IVF SCH ×2 (09:47→19:46)
[2018-11-21] MEDS: AMLODIPINE 10 MG TAB PO SCH (09:47)
[2018-11-21] MEDS: LISINOPRIL 40 MG TABLET PO SCH (09:47)
[2018-11-21] MEDS: Dorzolamide Hcl/Timolol Maleat (Dorzolamide-Timolol Eye Drops EACHEYE SCH ×2 (09:48→19:46)
[2018-11-21 14:11] VITALS: BP 133/68
[2018-11-21 18:57] VITALS: BP 147/77
[2018-11-21] MEDS: LATANOPROST OPHTH 0.005%, 2.5ML EACHEYE SCH (19:46)
[2018-11-21] MEDS: SIMVASTATIN 20 MG TABLET PO SCH (19:46)
[2018-11-21] MEDS: PRASUGREL 10 MG TABLET PO SCH (19:46)
[2018-11-21] MEDS: INSULIN GLARGINE 100 UNITS/ML, PEN SQ-INSULIN SCH (19:54)
[2018-11-22] MEDS: HYDROcodone/APAP 10/325 MG TABLET PO PRN ×4 (01:45→16:31)
[2018-11-22 02:11] VITALS: BP 157/78
[2018-11-22 05:16] LABS: BASOPHILS # (AUTO) 0.04 x10^3/uL (0-0.1); BASOPHILS % (AUTO) 0 % (0-1); EOSINOPHILS # (AUTO) 0.32 x10^3/uL (0-0.4); EOSINOPHILS % (AUTO) 3 % (1-7); LYMPHOCYTES % (AUTO) 13 % (22-44); MD NO; MEAN CORPUSCULAR HEMOGLOBIN 30.4 pg (27.0-34.8); MEAN CORPUSCULAR HGB CONC 32.4 g/dL (32.4-35.8); MEAN CORPUSCULAR VOLUME 93.8 fL (80-100); MEAN PLATELET VOLUME 7.8 fL (7.4-10.4); MONOCYTES # (AUTO) 0.98 x10^3/uL (0.2-0.8); MONOCYTES % (AUTO) 9 % (2-9); NEUTROPHILS # (AUTO) 8.09 x10^3/uL (1.8-6.8); NEUTROPHILS % (AUTO) 75 % (42-75); PLATELET COUNT 269 x10^3/uL (130-400); RED BLOOD COUNT 2.68 x10^6/uL (3.82-5.3); RED CELL DISTRIBUTION WIDTH 13.9 % (9.6-15.2)
[2018-11-22 05:21] LABS: ANION GAP 4 mmol/L (5-15); CALCIUM 8.5 mg/dL (8.5-10.1); CHLORIDE 106 mmol/L (98-107)
[2018-11-22 05:22] LABS: CREATININE 0.57 mg/dL (0.55-1.02)
[2018-11-22] MEDS ORDERED: MAGNESIUM HYDROXIDE 8%, 30ML UDC PO SCH (06:00)
[2018-11-22] MEDS ORDERED: BISACODYL 10 MG SUPP PR PRN (06:00)
[2018-11-22 06:39] VITALS: BP 155/73
[2018-11-22] MEDS: INSULIN LISPRO 100 UNITS/ML, PEN SQ-INSULIN SCH ×3 (07:34→16:31)
[2018-11-22] MEDS: ASPIRIN 81 MG TABLET EC PO SCH (08:26)
[2018-11-22] MEDS: LISINOPRIL 40 MG TABLET PO SCH (08:26)
[2018-11-22] MEDS: metFORMIN XR 500 MG TAB.ER.24H PO SCH (08:26)
[2018-11-22] MEDS: MULTIVITAMIN 1 TABLET PO SCH (08:26)
[2018-11-22] MEDS: AMLODIPINE 10 MG TAB PO SCH (08:26)
[2018-11-22] MEDS: Dorzolamide Hcl/Timolol Maleat (Dorzolamide-Timolol Eye Drops EACHEYE SCH (08:28)
[2018-11-22] MEDS: SODIUM CHLORIDE FLUSH 10ML SYR IVF SCH (08:29)
[2018-11-22] MEDS ORDERED: DOCUSATE 100 MG CAPSULE PO SCH (09:00)
[2018-11-22 11:20] LABS: CULTURE INDICATED? YES; MICROSCOPIC INDICATED
[2018-11-22 13:02] VITALS: BP 117/69
== END 2018-11-22 17:46 | DRG 739 ==
LOC: ED 11:10 → EDIP 11:11 → ED 11:15 → 3NW 12:55
PROVIDERS: ADMIT Specialist; ATTEND Specialist
PROC: 30233N1 Transfusion of Nonautologous Red Blood Cells into Peripheral Vein, Percutaneous Approach (ICD-10-PCS; 2018-11-13)
PROC: 0UT74ZZ Resection of Bilateral Fallopian Tubes, Percutaneous Endoscopic Approach (ICD-10-PCS; 2018-11-18)
PROC: 0UT94ZZ Resection of Uterus, Percutaneous Endoscopic Approach (ICD-10-PCS; 2018-11-18)
PROC: 8E0W4CZ Robotic Assisted Procedure of Trunk Region, Percutaneous Endoscopic Approach (ICD-10-PCS; 2018-11-18)
PROC: 07BC4ZX Excision of Pelvis Lymphatic, Percutaneous Endoscopic Approach, Diagnostic (ICD-10-PCS; 2018-11-18)
PROC: 0UT24ZZ Resection of Bilateral Ovaries, Percutaneous Endoscopic Approach (ICD-10-PCS; principal; 2018-11-18 17:30)
DX: C54.1 Malignant neoplasm of endometrium (principal); N17.0 Acute kidney failure with tubular necrosis; D62 Acute posthemorrhagic anemia; N39.0 Urinary tract infection, site not specified; E87.1 Hypo-osmolality and hyponatremia; N95.0 Postmenopausal bleeding; B96.20 Unspecified Escherichia coli [E. coli] as the cause of diseases classified elsewhere; E11.9 Type 2 diabetes mellitus without complications; E78.00 Pure hypercholesterolemia, unspecified; E78.1 Pure hyperglyceridemia; E78.5 Hyperlipidemia, unspecified; G89.29 Other chronic pain; I35.0 Nonrheumatic aortic (valve) stenosis; I10 Essential (primary) hypertension; I25.10 Atherosclerotic heart disease of native coronary artery without angina pectoris; Z66 Do not resuscitate; Z96.642 Presence of left artificial hip joint; F32.9 Major depressive disorder, single episode, unspecified; F41.9 Anxiety disorder, unspecified; M19.90 Unspecified osteoarthritis, unspecified site; Z90.5 Acquired absence of kidney; Z95.2 Presence of prosthetic heart valve; Z95.5 Presence of coronary angioplasty implant and graft; Z79.899 Other long term (current) drug therapy; Z79.4 Long term (current) use of insulin
CPT/HCPCS: 36415; 36430; 71045; 76770; 80048; 80053; 81001; 82962; 85014; 85018; 85025; 85610; 85730; 86304; 86850; 86900; 86923; 87040; 87077; 87086; 87186; 88305; 88307; 93005; 93306; G0378; J0690; J0744; J1100; J2405; J2704; J2710; J3010; J3490; J0360; J1815; J7030; P9016; Q0163

== ENCOUNTER 2019-01-19 09:23 | Inpatient (IN) | payer MEDICARE ==
[~2019-01-19] VITALS: Ht 165.1 cm; Wt 90.9 kg
[2019-01-20 12:30] VITALS: BP 152/76
== END 2019-01-20 16:00 | disposition home health service (06) | DRG 638 ==
LOC: ED 09:33 → EDIP 11:55 → 4EST 12:55 → DCLOUNGE 01-20 15:39
PROVIDERS: ADMIT Family Medicine; ATTEND Family Medicine
DX: E11.649 Type 2 diabetes mellitus with hypoglycemia without coma (principal); K62.5 Hemorrhage of anus and rectum; R68.0 Hypothermia, not associated with low environmental temperature; D50.0 Iron deficiency anemia secondary to blood loss (chronic); D72.829 Elevated white blood cell count, unspecified; I10 Essential (primary) hypertension; E78.5 Hyperlipidemia, unspecified; I25.10 Atherosclerotic heart disease of native coronary artery without angina pectoris; S00.83XA Contusion of other part of head, initial encounter; W18.39XA Other fall on same level, initial encounter; M19.90 Unspecified osteoarthritis, unspecified site; I48.91 Unspecified atrial fibrillation; E66.9 Obesity, unspecified; I35.0 Nonrheumatic aortic (valve) stenosis; Z79.4 Long term (current) use of insulin; Z79.82 Long term (current) use of aspirin; Z85.42 Personal history of malignant neoplasm of other parts of uterus; Z90.710 Acquired absence of both cervix and uterus; Z95.2 Presence of prosthetic heart valve; Z95.5 Presence of coronary angioplasty implant and graft; Y93.89 Activity, other specified; Y92.098 Other place in other non-institutional residence as the place of occurrence of the external cause; Y99.8 Other external cause status; Z68.33 Body mass index [BMI] 33.0-33.9, adult
CPT/HCPCS: 36415; 70450; 70486; 71045; 80048; 80053; 80307; 81001; 82550; 82962; 83036; 84443; 84484; 85014; 85018; 85025; 85520; 85610; 85730; 86850; 86900; 87086; 87147; 87324; 93005; 96372; 99291; G0378; J1644; C9113; J1815; J7030

== ENCOUNTER → 2019-04-25 | Outpatient (CLI) | payer MEDICARE ==
[~2019-04-25] MED LIST changes: +INSU100I11 SQ; -LORA-953 PO; +LORA10TA PO
== END | disposition home or self-care (01) ==
LOC: EDSTATUS 03-11 19:00 → ROC 08:06
PROVIDERS: ATTEND Radiology Radiation Oncology
DX: C54.1 Malignant neoplasm of endometrium (principal)
CPT/HCPCS: 99212; G0463

== ENCOUNTER → 2019-05-21 | Outpatient (CLI) | payer MEDICARE | END | disposition home or self-care (01) | LOC: CFH 13:37 | PROVIDERS: ATTEND Internal Medicine Cardiovascular Disease | DX: I08.1 Rheumatic disorders of both mitral and tricuspid valves (principal); E78.5 Hyperlipidemia, unspecified; I10 Essential (primary) hypertension; E11.9 Type 2 diabetes mellitus without complications | CPT/HCPCS: 93306 ==

== ENCOUNTER 2019-05-30 07:39 | Outpatient (CLI) | payer MEDICARE | END 2019-05-30 23:59 | disposition home or self-care (01) | LOC: ROC 07:39 | PROVIDERS: ATTEND Radiology Radiation Oncology | DX: C54.1 Malignant neoplasm of endometrium (principal) | CPT/HCPCS: 99212; G0463 ==

== ENCOUNTER 2019-08-20 21:39 | Inpatient (IN) | payer MEDICARE ==
[~2019-08-20] VITALS: Ht 167.6 cm; Wt 81.9 kg
[~2019-08-20 21:39] MED LIST changes: +SIMV20TA19 PO; -SIMV20TA3 PO
[2019-08-20] MEDS ORDERED: SODIUM CHLORIDE 0.9% 1,000ML IVBOLUS ONE (22:00)
[2019-08-20] MEDS ORDERED: SODIUM CHLORIDE FLUSH 10ML SYR IVF ONE (22:00)
[2019-08-20 22:05] LABS: RAPID INFLUENZA A Negative (Negative); RAPID INFLUENZA B Negative (Negative)
--- NOTE | 2019-08-20 22:07 | NUR ---
PT HERE FOR FATIGUE, DIARRHEA AND JUST NOT FEELING WELL. VSS. PIV PLACED. FLUIDS RUNNING. LAB AND XRAY AT BEDSIDE. CALL LIGHT IN REACH
[2019-08-20 22:08] LABS: BASOPHILS % (AUTO) 0 % (0-1); EOSINOPHILS # (AUTO) 0.04 x10^3/uL (0-0.4); EOSINOPHILS % (AUTO) 0 % (1-7); LYMPHOCYTES # (AUTO) 0.31 x10^3/uL (1-3.4); LYMPHOCYTES % (AUTO) 2 % (22-44); MD NO; MEAN CORPUSCULAR HEMOGLOBIN 29.8 pg (27.0-34.8); MEAN CORPUSCULAR HGB CONC 33.4 g/dL (32.4-35.8); MEAN CORPUSCULAR VOLUME 89.3 fL (80-100); MONOCYTES # (AUTO) 0.93 x10^3/uL (0.2-0.8); MONOCYTES % (AUTO) 6 % (2-9); NEUTROPHILS # (AUTO) 15.42 x10^3/uL (1.8-6.8); NEUTROPHILS % (AUTO) 92 % (42-75); PLATELET COUNT 291 x10^3/uL (130-400); RED BLOOD COUNT 3.99 x10^6/uL (3.82-5.3); RED CELL DISTRIBUTION WIDTH 13.7 % (9.6-15.2)
[2019-08-20 22:22] LABS: ALANINE AMINOTRANSFERASE 14 U/L (12-78); ALBUMIN 2.6 g/dL (3.4-5.0); ANION GAP 8 mmol/L (5-15); CALCIUM 8.8 mg/dL (8.5-10.1); CHLORIDE 103 mmol/L (98-107); CREATININE 0.75 mg/dL (0.55-1.02)
[2019-08-20 22:26] LABS: ALKALINE PHOSPHATASE 77 U/L (45-117); BILIRUBIN,TOTAL 0.5 mg/dL (0.2-1.0); TOTAL PROTEIN 6.9 g/dL (6.4-8.2)
[2019-08-20 22:35] LABS: TROPONIN I 0.163 ng/mL (0.000-0.045)
[2019-08-20] MEDS ORDERED: ASPIRIN 325 MG TABLET PO ONE (23:00)
--- NOTE | 2019-08-20 23:01 | NUR ---
STRAIGHT CATH DONE AND UA WALKED TO LAB. MED REC COMPLETE. VSS. SON AT BEDSIDE
[2019-08-20 23:11] LABS: MICROSCOPIC INDICATED
[2019-08-20 23:12] LABS: CULTURE INDICATED? YES
[2019-08-20] MEDS ORDERED: CEFTRIAXONE PMX 1GM/50ML 50 ML IV ONE (23:30)
[2019-08-20] MEDS ORDERED: ASPIRIN 325 MG TABLET ONE (23:43)
[2019-08-20] MEDS ORDERED: CEFTRIAXONE PMX 1GM/50ML 50 ML ONE (23:43)
--- NOTE | 2019-08-21 00:02 | NUR ---
PER [facility] REPORT PT HAD LOOSE STOOL ACCORDING TO NEIGHBOR. WHEN PT AND SON WAS ASKE ABOUT LOOSE STOOL PT DENIES. PT IS INCONTINENT OF URINE AND STOOL AND HAS NOT HAD A BM SINCE SHE CAME TO HOSPITAL. PT HAS BEEN INCONTINENT OF URINE MULTIPLE TIMES. ABX RUNNING. PT TO BE ADMITTED
[2019-08-21] MEDS ORDERED: BISACODYL 10 MG SUPP PR PRN (00:30)
[2019-08-21] MEDS ORDERED: POLYETHYLENE GLYCOL 17 GM PACKET PO PRN (00:30)
[2019-08-21] MEDS ORDERED: ACETAMINOPHEN 325 MG TABLET PO PRN (00:30)
[2019-08-21] MEDS ORDERED: ONDANSETRON ODT 4 MG PO PRN (00:30)
[2019-08-21] MEDS ORDERED: INSULIN LISPRO 100 UNITS/ML, PEN SQ-INSULIN SCH (00:30)
--- NOTE | 2019-08-21 00:35 | NUR ---
INÉSAT RN: PT RESTING WITH NO NEEDS EXPRESSED. DENIES CP OR SOB AT THIS TIME. AWAITING TRANSFER TO FLOOR.
[2019-08-21] MEDS: HYDROcodone/APAP 10/325 MG TABLET PO PRN ×3 (01:50→21:24)
[2019-08-21] MEDS: SODIUM CHLORIDE 0.9% 1,000 ML IV SCH ×3 (01:51→17:16)
[2019-08-21] MEDS: TIMOLOL MC SCH ×2 (02:00→10:00)
[2019-08-21] MEDS: DORZOLAMIDE MC SCH ×2 (02:00→10:00)
[2019-08-21 02:01] VITALS: BP 131/97
[2019-08-21] MEDS ORDERED: POTASSIUM CHLORIDE 20 MEQ TAB.ER.PRT ONE (02:38)
[2019-08-21] MEDS: POTASSIUM CHLORIDE 20 MEQ TAB.ER.PRT PO SCH ×2 (02:48→17:17)
[2019-08-21] MEDS: LATANOPROST OPHTH 0.005%, 2.5ML EACHEYE SCH ×2 (02:49→21:22)
[2019-08-21] MEDS: INSULIN LISPRO 100 UNITS/ML, PEN SQ-INSULIN SCH ×5 (02:58→21:25)
[2019-08-21 05:31] LABS: BASOPHILS # (AUTO) 0.03 x10^3/uL (0-0.1); BASOPHILS % (AUTO) 0 % (0-1); EOSINOPHILS # (AUTO) 0.06 x10^3/uL (0-0.4); EOSINOPHILS % (AUTO) 1 % (1-7); LYMPHOCYTES # (AUTO) 0.34 x10^3/uL (1-3.4); LYMPHOCYTES % (AUTO) 3 % (22-44); MD NO; MEAN CORPUSCULAR HEMOGLOBIN 29.6 pg (27.0-34.8); MEAN CORPUSCULAR HGB CONC 32.7 g/dL (32.4-35.8); MEAN CORPUSCULAR VOLUME 90.5 fL (80-100); MEAN PLATELET VOLUME 8.3 fL (7.4-10.4); MONOCYTES # (AUTO) 0.56 x10^3/uL (0.2-0.8); MONOCYTES % (AUTO) 5 % (2-9); NEUTROPHILS # (AUTO) 10.97 x10^3/uL (1.8-6.8); NEUTROPHILS % (AUTO) 92 % (42-75); PLATELET COUNT 274 x10^3/uL (130-400); RED BLOOD COUNT 3.89 x10^6/uL (3.82-5.3); RED CELL DISTRIBUTION WIDTH 14.2 % (9.6-15.2)
[2019-08-21 05:40] LABS: ANION GAP 4 mmol/L (5-15); CALCIUM 8.4 mg/dL (8.5-10.1); CHLORIDE 106 mmol/L (98-107)
[2019-08-21 05:47] LABS: CREATININE 0.78 mg/dL (0.55-1.02); TROPONIN I 0.308 ng/mL (0.000-0.045)
[2019-08-21] MEDS ORDERED: INSULIN GLARGINE 100 UNITS/ML, PEN SQ-INSULIN SCH (07:30)
[2019-08-21 09:00] VITALS: BP 129/74
[2019-08-21] MEDS: SENNA/DOCUSATE TABLET PO SCH (09:00)
[2019-08-21] MEDS ORDERED: TEMPLATE NON-FORMULARY MED. (Ubidecarenone** (Co Q-10**) 100 MG) PO SCH (09:00)
[2019-08-21] MEDS ORDERED: TEMPLATE NON-FORMULARY MED. (Dorzolamide Hcl/Timolol Maleat (Dorzolamide-Timolol Eye Drops EACHEYE SCH (09:00)
[2019-08-21] MEDS: MULTIVITAMIN 1 TABLET PO SCH (09:31)
[2019-08-21] MEDS: metFORMIN 500 MG TABLET PO SCH (09:31)
[2019-08-21 09:34] VITALS: BP 135/64
[2019-08-21] MEDS: AMLODIPINE 10 MG TAB PO SCH (09:35)
[2019-08-21] MEDS: LISINOPRIL 40 MG TABLET PO SCH (09:36)
[2019-08-21] MEDS: HYDROCHLOROTHIAZIDE 12.5 MG CAPSULE PO SCH (09:37)
[2019-08-21] MEDS: ASPIRIN 81 MG TABLET EC PO SCH (09:38)
[2019-08-21 10:36] LABS: TROPONIN I 0.271 ng/mL (0.000-0.045)
[2019-08-21 13:40] VITALS: BP 110/66
[2019-08-21] MEDS: SIMVASTATIN 20 MG TABLET PO SCH (21:22)
[2019-08-21] MEDS: PRASUGREL 10 MG TABLET PO SCH ×2 (21:23→21:25)
[2019-08-21] MEDS: TIMOLOL OPHTH 0.5%, 5ML OP SCH (21:24)
[2019-08-21] MEDS: DORZOLAMIDE OPHTH 2%, 10ML OP SCH (21:24)
[2019-08-21 21:39] VITALS: BP 122/68
[2019-08-21] MEDS: CEFTRIAXONE PMX 1GM/50ML 50 ML IV SCH (23:37)
[2019-08-22 02:35] VITALS: BP 117/62
[2019-08-22] MEDS: SODIUM CHLORIDE 0.9% 1,000 ML IV SCH ×2 (02:37→16:20)
[2019-08-22 05:15] LABS: BASOPHILS # (AUTO) 0.04 x10^3/uL (0-0.1); BASOPHILS % (AUTO) 0 % (0-1); EOSINOPHILS % (AUTO) 2 % (1-7); LYMPHOCYTES # (AUTO) 0.63 x10^3/uL (1-3.4); LYMPHOCYTES % (AUTO) 6 % (22-44); MD NO; MEAN CORPUSCULAR HEMOGLOBIN 29.5 pg (27.0-34.8); MEAN CORPUSCULAR VOLUME 89.5 fL (80-100); MEAN PLATELET VOLUME 8.7 fL (7.4-10.4); MONOCYTES # (AUTO) 1.29 x10^3/uL (0.2-0.8); MONOCYTES % (AUTO) 13 % (2-9); NEUTROPHILS % (AUTO) 78 % (42-75); PLATELET COUNT 223 x10^3/uL (130-400); RED CELL DISTRIBUTION WIDTH 14.3 % (9.6-15.2)
[2019-08-22 05:16] LABS: CHLORIDE 106 mmol/L (98-107)
[2019-08-22 05:19] LABS: ANION GAP 6 mmol/L (5-15); CALCIUM 8.4 mg/dL (8.5-10.1); CREATININE 0.73 mg/dL (0.55-1.02)
[2019-08-22] MEDS: HYDROcodone/APAP 10/325 MG TABLET PO PRN ×3 (07:42→21:10)
[2019-08-22] MEDS: INSULIN LISPRO 100 UNITS/ML, PEN SQ-INSULIN SCH ×4 (07:43→21:21)
[2019-08-22 07:49] VITALS: BP 137/62
[2019-08-22] MEDS: HYDROCHLOROTHIAZIDE 12.5 MG CAPSULE PO SCH (08:05)
[2019-08-22] MEDS: metFORMIN 500 MG TABLET PO SCH (08:05)
[2019-08-22] MEDS: AMLODIPINE 10 MG TAB PO SCH (08:06)
[2019-08-22] MEDS: ASPIRIN 81 MG TABLET EC PO SCH (08:06)
[2019-08-22] MEDS: TIMOLOL OPHTH 0.5%, 5ML OP SCH ×2 (08:06→21:13)
[2019-08-22] MEDS: LISINOPRIL 40 MG TABLET PO SCH (08:06)
[2019-08-22] MEDS: MULTIVITAMIN 1 TABLET PO SCH (08:06)
[2019-08-22] MEDS: DORZOLAMIDE OPHTH 2%, 10ML OP SCH ×2 (08:07→21:00)
[2019-08-22] MEDS: SENNA/DOCUSATE TABLET PO SCH (08:14)
[2019-08-22 13:48] VITALS: BP 108/70
[2019-08-22 20:31] VITALS: BP 144/76
[2019-08-22] MEDS: PRASUGREL 10 MG TABLET PO SCH (21:00)
[2019-08-22] MEDS: SIMVASTATIN 20 MG TABLET PO SCH (21:10)
[2019-08-22] MEDS: LATANOPROST OPHTH 0.005%, 2.5ML EACHEYE SCH (21:11)
[2019-08-22] MEDS: CEFTRIAXONE PMX 1GM/50ML 50 ML IV SCH (23:27)
[2019-08-23 01:23] VITALS: BP 146/76
[2019-08-23] MEDS: SODIUM CHLORIDE 0.9% 1,000 ML IV SCH ×2 (02:30→10:28)
[2019-08-23] MEDS: HYDROcodone/APAP 10/325 MG TABLET PO PRN (03:47)
[2019-08-23 05:10] LABS: BASOPHILS # (AUTO) 0.01 x10^3/uL (0-0.1); BASOPHILS % (AUTO) 0 % (0-1); EOSINOPHILS # (AUTO) 0.21 x10^3/uL (0-0.4); EOSINOPHILS % (AUTO) 2 % (1-7); LYMPHOCYTES # (AUTO) 0.53 x10^3/uL (1-3.4); LYMPHOCYTES % (AUTO) 5 % (22-44); MD NO; MEAN CORPUSCULAR HEMOGLOBIN 29.4 pg (27.0-34.8); MEAN CORPUSCULAR HGB CONC 33.2 g/dL (32.4-35.8); MEAN CORPUSCULAR VOLUME 88.6 fL (80-100); MEAN PLATELET VOLUME 8.7 fL (7.4-10.4); MONOCYTES # (AUTO) 1.09 x10^3/uL (0.2-0.8); MONOCYTES % (AUTO) 10 % (2-9); NEUTROPHILS # (AUTO) 9.32 x10^3/uL (1.8-6.8); NEUTROPHILS % (AUTO) 84 % (42-75); PLATELET COUNT 230 x10^3/uL (130-400); RED BLOOD COUNT 3.48 x10^6/uL (3.82-5.3); RED CELL DISTRIBUTION WIDTH 14.1 % (9.6-15.2)
[2019-08-23 05:24] LABS: ANION GAP 8 mmol/L (5-15); CALCIUM 8.1 mg/dL (8.5-10.1); CHLORIDE 104 mmol/L (98-107); CREATININE 0.67 mg/dL (0.55-1.02)
[2019-08-23] MEDS: INSULIN LISPRO 100 UNITS/ML, PEN SQ-INSULIN SCH ×4 (08:27→22:41)
[2019-08-23] MEDS: metFORMIN 500 MG TABLET PO SCH (08:28)
[2019-08-23] MEDS: LISINOPRIL 40 MG TABLET PO SCH (08:28)
[2019-08-23] MEDS: ASPIRIN 81 MG TABLET EC PO SCH (08:28)
[2019-08-23] MEDS: SENNA/DOCUSATE TABLET PO SCH (08:28)
[2019-08-23] MEDS: MULTIVITAMIN 1 TABLET PO SCH (08:28)
[2019-08-23] MEDS: AMLODIPINE 10 MG TAB PO SCH (08:29)
[2019-08-23] MEDS: HYDROCHLOROTHIAZIDE 12.5 MG CAPSULE PO SCH (08:29)
[2019-08-23] MEDS: DORZOLAMIDE OPHTH 2%, 10ML OP SCH ×2 (08:30→21:00)
[2019-08-23] MEDS: TIMOLOL OPHTH 0.5%, 5ML OP SCH ×2 (08:30→22:18)
[2019-08-23 11:10] VITALS: BP 147/71
[2019-08-23 15:40] VITALS: BP 156/84
[2019-08-23 18:06] VITALS: BP 148/80
[2019-08-23] MEDS: PRASUGREL 10 MG TABLET PO SCH ×2 (21:00→22:14)
[2019-08-23] MEDS: LATANOPROST OPHTH 0.005%, 2.5ML EACHEYE SCH (22:13)
[2019-08-23] MEDS: SIMVASTATIN 20 MG TABLET PO SCH (22:14)
[2019-08-23 22:37] VITALS: BP 153/74
[2019-08-24] MEDS: CEFTRIAXONE PMX 1GM/50ML 50 ML IV SCH ×2 (00:58→23:17)
[2019-08-24 01:56] VITALS: BP 134/78
[2019-08-24 07:13] VITALS: BP 145/76
[2019-08-24] MEDS: INSULIN LISPRO 100 UNITS/ML, PEN SQ-INSULIN SCH ×4 (07:45→20:11)
[2019-08-24] MEDS: HYDROCHLOROTHIAZIDE 12.5 MG CAPSULE PO SCH (07:46)
[2019-08-24] MEDS: AMLODIPINE 10 MG TAB PO SCH (07:46)
[2019-08-24] MEDS: LISINOPRIL 40 MG TABLET PO SCH (07:46)
[2019-08-24] MEDS: MULTIVITAMIN 1 TABLET PO SCH (07:46)
[2019-08-24] MEDS: TIMOLOL OPHTH 0.5%, 5ML OP SCH ×3 (07:46→19:59)
[2019-08-24] MEDS: ASPIRIN 81 MG TABLET EC PO SCH (07:46)
[2019-08-24] MEDS: metFORMIN 500 MG TABLET PO SCH (07:47)
[2019-08-24] MEDS: DORZOLAMIDE OPHTH 2%, 10ML OP SCH ×2 (07:47→19:59)
[2019-08-24] MEDS: SENNA/DOCUSATE TABLET PO SCH (07:48)
[2019-08-24] MEDS: HYDROcodone/APAP 10/325 MG TABLET PO PRN ×3 (08:07→20:10)
[2019-08-24 13:47] VITALS: BP 127/82
[2019-08-24 19:51] VITALS: BP 119/66
[2019-08-24] MEDS: SIMVASTATIN 20 MG TABLET PO SCH (19:59)
[2019-08-24] MEDS: LATANOPROST OPHTH 0.005%, 2.5ML EACHEYE SCH (19:59)
[2019-08-24] MEDS: PRASUGREL 10 MG TABLET PO SCH (20:00)
[2019-08-25 01:04] VITALS: BP 129/67
[2019-08-25 08:27] LABS: MEAN CORPUSCULAR HEMOGLOBIN 29.7 pg (27.0-34.8); MEAN CORPUSCULAR HGB CONC 33.1 g/dL (32.4-35.8); MEAN CORPUSCULAR VOLUME 89.5 fL (80-100); MEAN PLATELET VOLUME 8.1 fL (7.4-10.4); PLATELET COUNT 346 x10^3/uL (130-400); RED BLOOD COUNT 4.13 x10^6/uL (3.82-5.3); RED CELL DISTRIBUTION WIDTH 13.8 % (9.6-15.2)
[2019-08-25] MEDS: INSULIN LISPRO 100 UNITS/ML, PEN SQ-INSULIN SCH ×2 (08:36→12:23)
[2019-08-25] MEDS: metFORMIN 500 MG TABLET PO SCH (08:37)
[2019-08-25] MEDS: HYDROcodone/APAP 10/325 MG TABLET PO PRN (08:37)
[2019-08-25] MEDS: AMLODIPINE 10 MG TAB PO SCH (08:38)
[2019-08-25] MEDS: SENNA/DOCUSATE TABLET PO SCH ×2 (08:38→09:00)
[2019-08-25] MEDS: HYDROCHLOROTHIAZIDE 12.5 MG CAPSULE PO SCH (08:38)
[2019-08-25] MEDS: MULTIVITAMIN 1 TABLET PO SCH (08:38)
[2019-08-25] MEDS: LISINOPRIL 40 MG TABLET PO SCH (08:38)
[2019-08-25] MEDS: TIMOLOL OPHTH 0.5%, 5ML OP SCH ×2 (08:40→08:53)
[2019-08-25] MEDS: DORZOLAMIDE OPHTH 2%, 10ML OP SCH ×2 (08:41→08:48)
[2019-08-25 08:48] LABS: BASOPHILS # (AUTO) 0.01 x10^3/uL (0-0.1); BASOPHILS % (AUTO) 0 % (0-1); EOSINOPHILS # (AUTO) 0.13 x10^3/uL (0-0.4); EOSINOPHILS % (AUTO) 1 % (1-7); LYMPHOCYTES # (AUTO) 0.56 x10^3/uL (1-3.4); LYMPHOCYTES % (AUTO) 5 % (22-44); MD SCAN; MONOCYTES % (AUTO) 7 % (2-9); NEUTROPHILS # (AUTO) 10.66 x10^3/uL (1.8-6.8); NEUTROPHILS % (AUTO) 88 % (42-75)
[2019-08-25] MEDS ORDERED: INSULIN GLARGINE 100 UNITS/ML, PEN SQ-INSULIN SCH (09:00)
[2019-08-25] MEDS: ASPIRIN 81 MG TABLET EC PO SCH (09:00)
[2019-08-25] MEDS ORDERED: CEFD300C37 PO (09:04)
[2019-08-25 09:09] LABS: ANION GAP 9 mmol/L (5-15); CALCIUM 8.5 mg/dL (8.5-10.1); CHLORIDE 101 mmol/L (98-107); CREATININE 0.83 mg/dL (0.55-1.02)
[2019-08-25 09:59] VITALS: BP 125/78
== END 2019-08-25 14:32 | disposition home health service (06) | DRG 871 ==
LOC: ED 08-21 → EDIP 08-21 00:28 → 5SO 08-21 01:40 → 3N 08-23 17:49
PROVIDERS: ADMIT Family Medicine; ATTEND Hospitalist
DX: A41.51 Sepsis due to Escherichia coli [E. coli] (principal); J96.91 Respiratory failure, unspecified with hypoxia; I21.A1 Myocardial infarction type 2; N30.00 Acute cystitis without hematuria; R65.20 Severe sepsis without septic shock; E78.00 Pure hypercholesterolemia, unspecified; E78.5 Hyperlipidemia, unspecified; E86.0 Dehydration; E87.6 Hypokalemia; I10 Essential (primary) hypertension; I48.91 Unspecified atrial fibrillation; Z51.5 Encounter for palliative care; Z66 Do not resuscitate; Z79.4 Long term (current) use of insulin; Z85.44 Personal history of malignant neoplasm of other female genital organs; Z90.710 Acquired absence of both cervix and uterus; Z95.2 Presence of prosthetic heart valve; Z79.899 Other long term (current) drug therapy
CPT/HCPCS: 36415; 71045; 80048; 80053; 81001; 82962; 83036; 83605; 83880; 84145; 84484; 85025; 87040; 87077; 87086; 87186; 87400; 93005; 93306; 96361; 96365; G0378; J0696; J1815; J7030